=== PATIENT | male | born 1975 | race Caucasian/White ===

== ENCOUNTER → 2017-03-10 | Outpatient (CLI) | payer OTHER ==
[~2017-03-10] MED LIST: ADDERALL 20 MG20 MG PO; ASPIRIN EC81 MG PO; BACTRIM DS TAB1 EACH PO; DOCUSATE SODIU250 MG PO; DOSS PO; DULERA 100 MCG8.8 GM INH; FLOMAX0.4 MG PO; IBUPROFEN400 MG PO; PRIMIDONE50 MG PO; ROXICODONE5 MG PO; WELLBUTRIN SR200 MG PO; ZOFRAN4 MG PO
== END ==
LOC: CT 03-09 10:00
DX: R51 Headache (principal); R43.8 Other disturbances of smell and taste; R09.81 Nasal congestion; J34.2 Deviated nasal septum; J34.89 Other specified disorders of nose and nasal sinuses; Z87.81 Personal history of (healed) traumatic fracture
CPT/HCPCS: 70486

== ENCOUNTER → 2017-04-09 | Outpatient (CLI) | payer OTHER | LOC: KOH-I 13:10 | DX: R10.31 Right lower quadrant pain (principal) | CPT/HCPCS: 74176 ==

== ENCOUNTER → 2017-04-23 | Outpatient (CLI) | payer OTHER | LOC: EMI 08:16 | DX: R41.3 Other amnesia (principal); R26.1 Paralytic gait; Z87.898 Personal history of other specified conditions | CPT/HCPCS: 70551 ==

== ENCOUNTER → 2017-07-21 | Outpatient (CLI) | payer OTHER ==
[2017-07-21 13:57] LABS: BUN/CREATININE RATIO 19 (0-10)
== END ==
LOC: OPSV2 12:30
PROVIDERS: Orthopaedic Surgery
DX: Z01.812 Encounter for preprocedural laboratory examination (principal); M25.372 Other instability, left ankle; Z88.6 Allergy status to analgesic agent; Z88.5 Allergy status to narcotic agent; Z88.8 Allergy status to other drugs, medicaments and biological substances
CPT/HCPCS: 36415; 80048

== ENCOUNTER → 2017-07-23 | Day surgery (SDC) | payer OTHER ==
[~2017-07-23] VITALS: Ht 170.2 cm; Wt 80.7 kg
== END | disposition home or self-care (01) ==
LOC: OR 09:03
PROVIDERS: Orthopaedic Surgery
PROC: 0YQL0ZZ Repair Left Ankle Region, Open Approach (ICD-10-PCS; 2017-07-23)
PROC: 0SBG4ZZ Excision of Left Ankle Joint, Percutaneous Endoscopic Approach (ICD-10-PCS; principal; 2017-07-23 10:05)
DX: M25.372 Other instability, left ankle (principal); F90.9 Attention-deficit hyperactivity disorder, unspecified type; M19.90 Unspecified osteoarthritis, unspecified site; F17.210 Nicotine dependence, cigarettes, uncomplicated; Z79.1 Long term (current) use of non-steroidal anti-inflammatories (NSAID); Z79.891 Long term (current) use of opiate analgesic; Z79.899 Other long term (current) drug therapy; Z88.0 Allergy status to penicillin; Z88.1 Allergy status to other antibiotic agents
CPT/HCPCS: 73600; 73610; 76000; C1713; J2250; J3010; J7120

== ENCOUNTER → 2022-05-13 | Outpatient (CLI) | payer OTHER | LOC: KOH-I 15:13 | DX: S51.011A Laceration without foreign body of right elbow, initial encounter (principal); M66.821 Spontaneous rupture of other tendons, right upper arm; M75.21 Bicipital tendinitis, right shoulder | CPT/HCPCS: 73221 ==